=== PATIENT | female | born 1945 | race Two or more races ===

== ENCOUNTER 2025-02-27 13:09 | Inpatient (IN) | payer MEDICARE, OTHER ==
[~2025-02-27] VITALS: Ht 157.5 cm; Wt 70.8 kg
[2025-02-27] MEDS: ONDANSETRON HCL/PF 4 MG/2 ML VIAL IV ONE (13:28)
[2025-02-27] MEDS ORDERED: ONDANSETRON HCL/PF 4 MG/2 ML VIAL ONE (13:32)
[2025-02-27] MEDS ORDERED: MORPHINE SULFATE INJ 4 MG/ML DISP.SYRIN ONE (13:33)
[2025-02-27] MEDS: MORPHINE SULFATE INJ 2 MG/ML DISP.SYRIN IV ONE (13:40)
[2025-02-27 14:14] LABS: PLATELET COUNT (AUTO) 184 K/uL (150-450); RED BLOOD CELL COUNT(AUTO) 5.03 MIL/uL (4.0-5.2); RED CELL DISTRIBUTION WIDTH 15.5 % (11.5-15.0); WHITE BLOOD COUNT (AUTO) 9.2 K/uL (4.3-11.0)
[2025-02-27 14:25] LABS: CALCIUM, SERUM 9.3 mg/dL (8.5-10.1); CREATININE 1.2 mg/dL (0.6-1.3); SODIUM SERUM 139.0 mmol/L (136-145); UREA NITROGEN, BLOOD 22.0 mg/dL (7-18)
[2025-02-27 14:31] LABS: ASPARTATE AMINOTRANSFERASE 19.0 U/L (15-37); TOTAL PROTEIN, SERUM 7.6 g/dL (6.4-8.2)
[2025-02-27 14:37] LABS: INR 1.07 (0.91-1.10)
[2025-02-27] MEDS ORDERED: SITA50TA PO (15:31)
[2025-02-27] MEDS ORDERED: CLOP75TA15 PO (15:31)
[2025-02-27] MEDS ORDERED: ATOR40TA PO (15:31)
[2025-02-27] MEDS ORDERED: SACU1TAB7 PO (15:31)
[2025-02-27] MEDS ORDERED: ACET1TAB25 PO (15:31)
[2025-02-27] MEDS ORDERED: CALC500T52 PO (15:31)
[2025-02-27] MEDS ORDERED: EZET10TA32 PO (15:31)
[2025-02-27] MEDS ORDERED: CARV12.52 PO (15:31)
[2025-02-27] MEDS ORDERED: GLIP10TA11 PO (15:31)
[2025-02-27] MEDS ORDERED: DAPA10TA PO (15:31)
[2025-02-27] MEDS ORDERED: ONDANSETRON HCL/PF 4 MG/2 ML VIAL IVP PRN (16:00)
[2025-02-27] MEDS ORDERED: ACETAMINOPHEN 325 MG TABLET PO PRN (16:00)
[2025-02-27] MEDS ORDERED: Z GUARD REMEDY 4 OZ OINT TP PRN (16:00)
[2025-02-27] MEDS ORDERED: DEXTROSE 50%-WATER 50 ML DISP.SYRIN IV PRN (16:00)
[2025-02-27] MEDS ORDERED: MAGNESIUM HYDROXIDE 30 ML UDC PO PRN (16:00)
[2025-02-27 16:20] VITALS: BP 108/54; TEMP 97.3; O2SAT 98
[2025-02-27] MEDS: HYDROMORPHONE 1 MG/1 ML DISP.SYRIN IV PRN (16:46)
[2025-02-27] MEDS: CARVEDILOL 12.5 MG TABLET PO SCH (17:54)
[2025-02-27] MEDS: BLOOD SUGAR DIAGNOSTIC 1 EACH STRIP IN SCH (18:01)
[2025-02-27] MEDS: INSULIN REGULAR, HUMAN 100 UNIT/ML 3 ML VIAL SQ PRN (19:14)
[2025-02-27 20:00] VITALS: BP 112/58; TEMP 98.4; O2SAT 97
[2025-02-27] MEDS: ATORVASTATIN 40 MG TABLET PO SCH (21:27)
[2025-02-28 04:00] VITALS: BP 108/49; TEMP 98.2; O2SAT 98
[2025-02-28] MEDS: IV D5/0.45 NACL 1,000 ML IV PRN (06:16)
[2025-02-28 06:27] LABS: PLATELET COUNT (AUTO) 181 K/uL (150-450); RED BLOOD CELL COUNT(AUTO) 3.79 MIL/uL (4.0-5.2); RED CELL DISTRIBUTION WIDTH 15.1 % (11.5-15.0); WHITE BLOOD COUNT (AUTO) 10.8 K/uL (4.3-11.0)
[2025-02-28] MEDS: PANTOPRAZOLE 40 MG TABLET.DR PO SCH (07:30)
[2025-02-28 08:15] LABS: CALCIUM, SERUM 8.6 mg/dL (8.5-10.1); CREATININE 1.2 mg/dL (0.6-1.3); PHOSPHORUS 4.1 mg/dL (2.5-4.9); SODIUM SERUM 140.0 mmol/L (136-145); UREA NITROGEN, BLOOD 22.0 mg/dL (7-18)
[2025-02-28] MEDS: EZETIMIBE 10 MG TABLET PO SCH (08:26)
[2025-02-28] MEDS: CALCIUM CARBONATE (1250) 500 MG TABLET PO SCH (08:26)
[2025-02-28] MEDS: DAPAGLIFLOZIN PROPANEDIOL 10 MG TABLET PO SCH (08:26)
[2025-02-28] MEDS: LINAGLIPTIN 5 MG TABLET PO SCH (08:26)
[2025-02-28 10:35] LABS: LDL 38.0 mg/dL (0-99)
[2025-02-28 12:00] VITALS: BP 106/47; TEMP 97.9; O2SAT 99
[2025-02-28] MEDS ORDERED: SEVOFLURANE 250 ML BOTTLE IH ONE (16:22)
[2025-02-28] MEDS ORDERED: BUPIVACAINE 0.25% 75 MG/30 ML VIAL ONE (16:22)
[2025-02-28] MEDS ORDERED: FENTANYL PF 100MCG/2ML AMPUL ONE (16:43)
[2025-02-28] MEDS ORDERED: MIDAZOLAM HCL 2 MG/2ML VIAL ONE (16:43)
[2025-02-28] MEDS ORDERED: VASOPRESSIN INJ 20 UNIT/ML VIAL ONE (16:43)
[2025-02-28] MEDS ORDERED: ALBUMIN 5% 250 ML IV ONE (17:17)
[2025-02-28] MEDS ORDERED: VANCOMYCIN 1 GM VIAL ONE (17:20)
[2025-02-28] MEDS ORDERED: TRANEXAMIC ACID 1,000 MG/10 ML VIAL ONE (17:22)
[2025-02-28] MEDS ORDERED: HYDROMORPHONE 1 MG/1 ML DISP.SYRIN ONE (20:44)
[2025-02-28] MEDS: HYDROMORPHONE 1 MG/1 ML DISP.SYRIN IV PRN (20:49)
[2025-02-28 21:30] VITALS: BP 120/80; TEMP 97.8; O2SAT 93
[2025-03-01] VITALS (8 sets, daily range): BP systolic 100–137; BP diastolic 39–74; TEMP 97.9–98.5; O2SAT 94–97
[2025-03-01] MEDS ORDERED: CEFAZOLIN 2 GM ONE (00:20)
[2025-03-01] MEDS: CEFAZOLIN 2 GM in IV D5W 100 ML IV SCH ×2 (00:28→09:09)
[2025-03-01] MEDS ORDERED: CEFAZOLIN 2 GM in IV D5W 100 ML IV SCH (01:00)
[2025-03-01] MEDS: HYDROMORPHONE 1 MG/1 ML DISP.SYRIN IV PRN (04:50)
[2025-03-01 06:50] LABS: CALCIUM, SERUM 7.8 mg/dL (8.5-10.1); CREATININE 1.2 mg/dL (0.6-1.3); SODIUM SERUM 138.0 mmol/L (136-145); UREA NITROGEN, BLOOD 25.0 mg/dL (7-18)
[2025-03-01] MEDS: ENOXAPARIN SODIUM 40 MG/0.4 ML DISP.SYRIN SQ SCH (09:06)
[2025-03-01 10:41] LABS: PLATELET COUNT (AUTO) 164 K/uL (150-450); RED BLOOD CELL COUNT(AUTO) 2.59 MIL/uL (4.0-5.2); RED CELL DISTRIBUTION WIDTH 15.5 % (11.5-15.0); WHITE BLOOD COUNT (AUTO) 13.8 K/uL (4.3-11.0)
[2025-03-01] MEDS: PREGABALIN 25 MG CAPSULE PO SCH (13:53)
[2025-03-01 14:54] LABS: LYMPHOCYTES % (MANUAL) 10 % (16-48); MONOCYTES % (MANUAL) 10 % (0-11.0); NEUTROPHILS % (MANUAL) 80 (42-76); PLATELET ESTIMATE ADEQUATE
[2025-03-01] MEDS ORDERED: HYDROCODONE/APAP 5/325MG TABLET PO PRN (15:00)
[2025-03-01] MEDS: HYDROCODONE/APAP 10/325MG TABLET PO PRN (16:28)
[2025-03-01] MEDS: SOD FERRIC GLUC 125 MG in IV NS 0.9% 100 ML IV SCH (17:10)
[2025-03-02 04:00] VITALS: BP 105/51; TEMP 98.2; O2SAT 95
[2025-03-02 07:04] LABS: PLATELET COUNT (AUTO) 150 K/uL (150-450); RED BLOOD CELL COUNT(AUTO) 3.01 MIL/uL (4.0-5.2); RED CELL DISTRIBUTION WIDTH 15.6 % (11.5-15.0); WHITE BLOOD COUNT (AUTO) 10.1 K/uL (4.3-11.0)
[2025-03-02 07:40] LABS: CALCIUM, SERUM 8.7 mg/dL (8.5-10.1); CREATININE 1.1 mg/dL (0.6-1.3); PHOSPHORUS 2.6 mg/dL (2.5-4.9); SODIUM SERUM 141.0 mmol/L (136-145); UREA NITROGEN, BLOOD 26.0 mg/dL (7-18)
[2025-03-02 08:00] VITALS: BP 111/44; TEMP 97.7; O2SAT 96
[2025-03-02 08:47] VITALS: BP 111/44
== END 2025-03-02 15:09 | DRG 481 ==
LOC: ER 13:14 → MEDSG1 15:26
PROVIDERS: ADMIT Nurse Practitioner Family; ATTEND Nurse Practitioner Family
PROC: 0QS606Z Reposition Right Upper Femur with Intramedullary Internal Fixation Device, Open Approach (ICD-10-PCS; principal; 2025-02-28 17:00)
PROC: 30233N1 Transfusion of Nonautologous Red Blood Cells into Peripheral Vein, Percutaneous Approach (ICD-10-PCS; 2025-03-01)
DX: S72.21XA Displaced subtrochanteric fracture of right femur, initial encounter for closed fracture (principal); D62 Acute posthemorrhagic anemia; S72.141A Displaced intertrochanteric fracture of right femur, initial encounter for closed fracture; W01.0XXA Fall on same level from slipping, tripping and stumbling without subsequent striking against object, initial encounter; Y92.009 Unspecified place in unspecified non-institutional (private) residence as the place of occurrence of the external cause; E11.9 Type 2 diabetes mellitus without complications; I11.0 Hypertensive heart disease with heart failure; I50.9 Heart failure, unspecified; I25.10 Atherosclerotic heart disease of native coronary artery without angina pectoris; Z95.1 Presence of aortocoronary bypass graft; Z95.0 Presence of cardiac pacemaker; Z96.642 Presence of left artificial hip joint; Z79.02 Long term (current) use of antithrombotics/antiplatelets; M17.0 Bilateral primary osteoarthritis of knee; I25.5 Ischemic cardiomyopathy; I70.0 Atherosclerosis of aorta; M85.80 Other specified disorders of bone density and structure, unspecified site; Z87.891 Personal history of nicotine dependence; R79.89 Other specified abnormal findings of blood chemistry; Z79.84 Long term (current) use of oral hypoglycemic drugs; Z79.899 Other long term (current) drug therapy
CPT/HCPCS: 36415; 71045-TC; 73502; 73552; 73590-TC; 80048-TC; 80061-TC; 80076-TC; 82962-TC; 83735-TC; 84100-TC; 85025-TC; 85027-TC; 85730-TC; 86850-TC; 87081-TC; 93307-TC; 97110-TC; 97116-TC; 97530-TC; 97535-TC; A4223; A6209; A6223; A6253; C1713; G0378; J0690; J1171; J1650; J1815; J2250; J2270; J2405; J2704; J2916; J3010; J3373; J3490; J7030; J7050; J7060; P9016; P9045